=== PATIENT | male | born 1995 | race African-American/Black ===

== ENCOUNTER 2017-07-16 01:18 | Emergency (ER) | payer MEDICAID ==
[~2017-07-16] VITALS: Ht 185.4 cm; Wt 75.2 kg
[2017-07-16 01:20] VITALS: BP 146/79
[2017-07-16] MEDS ORDERED: AZITHROMYCIN 500 MG TABLET PO ONE (02:00)
[2017-07-16] MEDS ORDERED: CEFTRIAXONE 250 MG IM ONE (02:00)
== END 2017-07-16 02:04 | disposition home or self-care (01) ==
LOC: ED 01:50
DX: R30.0 Dysuria (principal); F17.200 Nicotine dependence, unspecified, uncomplicated
CPT/HCPCS: 87491; 87591; 99284

== ENCOUNTER 2017-07-18 20:11 | Emergency (ER) | payer SELFPAY ==
[~2017-07-18] VITALS: Ht 185.4 cm; Wt 72.2 kg
[2017-07-18 20:16] VITALS: BP 132/88
[2017-07-18] MEDS ORDERED: AZITHROMYCIN 500 MG TABLET ONE (20:46)
[2017-07-18] MEDS ORDERED: CEFTRIAXONE 250 MG ONE (20:46)
[2017-07-18] MEDS ORDERED: CEFTRIAXONE 250 MG IM ONE (21:00)
[2017-07-18] MEDS ORDERED: AZITHROMYCIN 500 MG TABLET PO ONE (21:00)
== END 2017-07-18 21:05 | disposition home or self-care (01) ==
LOC: ED 20:35
DX: A56.01 Chlamydial cystitis and urethritis (principal)
CPT/HCPCS: 96372; 99283; J0696

== ENCOUNTER 2017-08-08 16:04 | Emergency (ER) | payer OTHER ==
[~2017-08-08] VITALS: Ht 185.4 cm; Wt 71.4 kg
[2017-08-08 16:05] VITALS: BP 120/71
[2017-08-08] MEDS ORDERED: DIPH,PERTUSS(ACELL),TET VAC/PF 0.5 ML IM-VACC ONE ×2 (16:38→17:00)
== END 2017-08-08 17:37 | disposition home or self-care (01) ==
LOC: ED 16:30
DX: T20.66XA Corrosion of second degree of forehead and cheek, initial encounter (principal); T65.891A Toxic effect of other specified substances, accidental (unintentional), initial encounter; F17.200 Nicotine dependence, unspecified, uncomplicated; Y93.89 Activity, other specified; Y99.8 Other external cause status; Y92.009 Unspecified place in unspecified non-institutional (private) residence as the place of occurrence of the external cause
CPT/HCPCS: 90471; 90715; 99283

== ENCOUNTER 2020-06-01 19:24 | Emergency (ER) | payer MEDICAID, OTHER ==
[~2020-06-01] VITALS: Ht 185.4 cm; Wt 74.3 kg
--- NOTE | 2020-06-01 20:57 | NUR ---
PT SITTING IN BED, NO ACUTE DISTRESS, AND MD TO SEE, AND URINE SENT TO LAB.
[2020-06-01 20:59] LABS: MICROSCOPIC NOT IND
[2020-06-01] MEDS ORDERED: CEFTRIAXONE 1,000 MG IM ONE (21:00)
--- NOTE | 2020-06-01 21:05 | NUR ---
PT MEDICATD PER EMAR, AND TOLERATED WELL.
[2020-06-01] MEDS ORDERED: CEFTRIAXONE 1,000 MG ONE (21:13)
[2020-06-01] MEDS ORDERED: DOXYCYCLINE 100MG TABLET ONE (21:13)
[2020-06-01 21:22] VITALS: BP 136/86
[2020-06-01] MEDS ORDERED: DOXYCYCLINE 100MG TABLET PO ONE (21:30)
== END 2020-06-01 22:04 | disposition home or self-care (01) ==
LOC: ED 21:58
DX: L04.1 Acute lymphadenitis of trunk (principal); Z20.2 Contact with and (suspected) exposure to infections with a predominantly sexual mode of transmission
CPT/HCPCS: 81003; 87491; 87591; 96372; 99283; J0696